=== PATIENT | female | born 1975 | race Caucasian/White ===

== ENCOUNTER 2017-06-10 05:35 | Inpatient (IN) | payer BC ==
[2017-06-02 12:50] LABS: HEMOGLOBIN 13.6 gm/dL (12.0-15.0); MCHC 34.1 g/dL (28.0-37.0); MCV 87.9 fL (80.0-100.0); RBC 4.55 mil/uL (4.20-5.00); RDW 13.9 % (10.5-14.5); WBC 9.5 thou/uL (4.0-11.0)
[2017-06-02 12:51] LABS: URINE BILIRUBIN NEGATIVE (Negative); URINE BLOOD NEGATIVE (Negative); URINE COLOR YELLOW; URINE GLUCOSE-RANDOM* NEGATIVE (Negative); URINE KETONES NEGATIVE (Negative); URINE LEUKOCYTES-REFLEX NEGATIVE (Negative); URINE PROTEIN (DIPSTICK) NEGATIVE (Negative); URINE UROBILINOGEN 0.2 E.U./dl (0.2-1.0)
[2017-06-02 12:59] LABS: ALBUMIN 3.5 g/dL (3.4-5.0); CALCIUM 7.9 mg/dL (8.5-10.1); CREATININE 0.9 mg/dL (0.6-1.0); POTASSIUM 4.3 mmol/L (3.5-5.1)
[2017-06-02 13:01] LABS: PROTIME 9.9 Seconds (9.3-11.4)
[~2017-06-10] VITALS: Ht 162.6 cm; Wt 117.5 kg
--- NOTE | ~2017-06-10 | O ---
[facility] [place] [address] OPERATIVE REPORT Name: EDD LAINEZ Room #: 150-2 ADM IN M.R.#: [id number] Admission: 06/10/17 Attend Phys: Alexys Leahy MD Discharge: Date of : 79 Report #: [id number] THIS REPORT FOR: //name// CC: EDWARD Leahy DATE OF SERVICE: 06/10/2017 PREOPERATIVE DIAGNOSIS: Left knee medial compartment osteoarthritis. POSTOPERATIVE DIAGNOSIS: Left knee medial compartment osteoarthritis. PROCEDURE: Left medial unicompartmental knee arthroplasty. SURGEON: Alexys Leahy MD. [employer] OPERATOR: Adelia Vidal PA-C. ANESTHESIA: Spinal with adductor canal block. IMPLANTS: [employer] [place] twin peg size medium femur, a size 8 tibia and a size 4 polyethylene. TOURNIQUET TIME: 75 minutes. ESTIMATED BLOOD LOSS: 10 mL. COMPLICATIONS: None. SPECIMENS: None. CONDITION UPON LEAVING THE OPERATING ROOM: Stable. INDICATIONS FOR PROCEDURE CONSENT: The patient is a 42-year-old female who has severe medial compartment, left knee osteoarthritis. She had failed conservative treatment for this. After discussion with her, she elected for a left unicompartmental knee arthroplasty. DESCRIPTION OF PROCEDURE: Risks, benefits, alternatives, complications were discussed in detail with the patient including but not limited to risk of anesthesia, risk of damage to nerves, arteries, blood vessels, risk for infection, bleeding, risk for continued knee pain and need for reoperation. Informed consent was obtained from the patient. Left knee was appropriately marked in the preoperative holding area. Adductor canal block was placed by Anesthesia, 2 grams IV Ancef were given for preoperative antibiotics. She was brought to the operating room and spinal anesthesia was induced without [facility] [address] [place] [address] OPERATIVE REPORT Name: EDD LAINEZ Room #: 150-2 ADM IN .R.#: [id number] Admission: 06/10/17 Attend Phys: Alexys Leahy MD Discharge: Date of : 79 Report #: [id number] complication. She was then placed on the operating room table and a tourniquet was placed on the left thigh. Left lower extremity was prepped and draped in normal sterile fashion. Timeout was performed properly identifying the patient and procedure as well as the instrumentation and implants. All in the operating room were in agreement. Left lower extremity was exsanguinated, tourniquet was inflated. Tourniquet time was 75 minutes. Standard medial approach to the knee was made with #10 blade through the skin. Dissection was taken down sharply to the fascia and deep flaps were developed medially and laterally. A fresh #10 blade was used to make a medial parapatellar arthrotomy and the knee was inspected. There was severe medial compartment osteoarthritic change. Lateral compartment and patellofemoral compartment were well maintained, ACL was intact. It was decided to proceed with unicompartmental arthroplasty. Tibial resection guide was then pinned in place and tibial resection was made and removed. The medial osteophytes on the femur were removed and drill was used to gain access to the canal of the femur and intramedullary alignment javon was placed. The guide for the femoral drill holes was then placed and connected to the intramedullary javon and drill holes were made. Posterior femoral resection was then made and the zero spigot was placed, the femur was milled and then a size A tibial trial was placed and a medium femur was placed, this was found to be a 4 in flexion and a zero extension. The size 4 spigot was placed and the femur was milled again and trialed again with the femoral and tibial trials and found to have good balance at a 4 in flexion and extension. Posterior osteophytes were removed from the femur, the anterior rim of bone was removed with the mill. The keel cut for the tibia was made and the keeled tibial trial was placed and a medium femoral trial was placed and a size 4 polyethylene trial was placed. Knee was taken through range of motion, found to be stable, found to have good balance in flexion and extension both medially and laterally. Trial components were removed. Bony ends were thoroughly irrigated with normal saline. A final size 8 tibia and a size medium femur were cemented in place using standard cementation techniques. After the cement cured, the knee was irrigated again and a final size 4 polyethylene was placed. Periarticular injection consisting of morphine, ropivacaine, epinephrine and Toradol was placed around the knee joint. The fascia was closed with 0 Vicryl. A gram of vancomycin was placed deep in the joint prior to fascial closure. The skin was closed with 2-0 Vicryl, 3-0 Monocryl. Dermabond and Aquacel were applied. The patient tolerated this procedure well and went to the recovery room under the care of Anesthesia postoperatively. By: [id number] Alexys Leahy MD /nt
[~2017-06-10 05:35] MED LIST: AMBIEN 10 MG TA10 MG PO; APRI1 EACH PO; DIPHENHYDR50 MG/1 ML IM; FLEXERIL PO; KETOROLAC60 MG/2 ML IM; PROMETHAZI25 MG/1 ML IM; PROZAC20 MG PO; XANAX 0.5 MG0.5 MG PO
[2017-06-10 07:30] VITALS: BP 141/86
[2017-06-10 12:24] VITALS: BP 111/54
[2017-06-10 13:00] VITALS: BP 110/60
[2017-06-10 15:24] VITALS: BP 110/60
[2017-06-10] MEDS ORDERED: CVS BUFFERED A325 MG PO (15:24)
[2017-06-10] MEDS ORDERED: PERCOCET PO (15:25)
[2017-06-10] MEDS ORDERED: MS CONTIN15 MG PO (15:25)
[2017-06-10] MEDS ORDERED: NEURONTIN 300300 M1 PO (15:25)
[2017-06-10 15:54] VITALS: BP 110/60
[2017-06-11] MEDS ORDERED: DILAUDID 2 MG TA2 MG PO (16:09)
[2017-06-11] MEDS ORDERED: FENTANYL PATCH75 MCG TRANSDERM (16:25)
== END 2017-06-10 17:45 | disposition home or self-care (01) | DRG 470 ==
LOC: TBA 05:35 → PRE 09:52 → 4N 12:12 → PRE 12:22 → ENTRNSPT 17:14 → 4N 17:45
PROVIDERS: Orthopaedic Surgery
PROC: 0SRD0L9 Replacement of Left Knee Joint with Medial Unicondylar Synthetic Substitute, Cemented, Open Approach (ICD-10-PCS; principal; 2017-06-10)
DX: M17.12 Unilateral primary osteoarthritis, left knee (principal); Z88.6 Allergy status to analgesic agent; Z88.2 Allergy status to sulfonamides
CPT/HCPCS: 10790; 50010; 50101; 50415; 51130; 51225; 51771; 52056; 53078; 53370; 54118; 55262; 56527; 56528; 57095; 62110; 62850; 65085; 70005

== ENCOUNTER 2017-06-11 13:39 | Emergency (ER) | payer BC ==
[~2017-06-11] VITALS: Ht 160 cm; Wt 115.7 kg
[~2017-06-11 13:39] MED LIST changes: +CVS BUFFERED A325 MG PO; +MS CONTIN15 MG PO; +NEURONTIN 300300 M1 PO; +PERCOCET PO
[2017-06-11] MEDS ORDERED: DILAUDID 2 MG TA2 MG PO (16:09)
[2017-06-11] MEDS ORDERED: FENTANYL PATCH75 MCG TRANSDERM (16:25)
== END 2017-06-11 16:44 | disposition home or self-care (01) ==
LOC: ER 13:39
DX: G89.18 Other acute postprocedural pain (principal); M25.562 Pain in left knee; M79.89 Other specified soft tissue disorders; K21.9 Gastro-esophageal reflux disease without esophagitis; G43.909 Migraine, unspecified, not intractable, without status migrainosus; Z98.890 Other specified postprocedural states; F17.210 Nicotine dependence, cigarettes, uncomplicated; F10.99 Alcohol use, unspecified with unspecified alcohol-induced disorder; Z88.2 Allergy status to sulfonamides; Z88.5 Allergy status to narcotic agent